=== PATIENT | male | born 2005 | race Hispanic/Latino ===

== ENCOUNTER 2024-12-22 11:06 | Emergency (ER) | payer SELFPAY ==
[~2024-12-22] VITALS: Ht 162.6 cm; Wt 75.3 kg
[2024-12-22 11:16] VITALS: BP 144/76; PULSE 97; RESP 16; TEMP 98.3
--- NOTE | 2024-12-22 11:19 | ERN ---
ED Note History of Present Illness Stated Complaint: RECTAL PAIN Chief Complaint: Other Problems Time Seen by MD: 11:11 Dictation: PATIENT IS A 19-YEAR-OLD MALE HERE WITH HIS MOTHER WITH COMPLAINTS OF RECTAL PAIN HE HAS HAD FOR ONE WEEK. STATES SHE HAS A HISTORY OF HEMORRHOIDS, WENT TO HIS PRIMARY CARE DOCTOR LAST [place] WAS NOT EXAMINED HOWEVER HAD A ANUCORT SUPPOSITORIES PRESCRIBED THAT HE STATES HE HAS BEEN USING. HE STATES HE STILL HAVING BOWEL MOVEMENTS, DENIES ANY HISTORY OF ANAL SEX OR FOREIGN OBJECTS. WAS NOT REFERRED TO [facility]. Allergies: Coded Allergies: No Known Drug Allergies (Unverified Allergy, Unknown, 12/22/24) Past Medical History RN Note Reviewed/Agreed w/PFSH: Yes Review of System Dictation CONSTITUTIONAL: NEGATIVE EXCEPT FOR HPI HEAD/FACE: NEGATIVE EXCEPT FOR HPI EENT: NEGATIVE EXCEPT FOR HPI RESPIRATORY: NEGATIVE EXCEPT FOR HPI GASTROINTESTINAL/ABDOMINAL: NEGATIVE EXCEPT FOR HPI RECTAL PAIN/HEMORRHOIDS GENITOURINARY: NEGATIVE EXCEPT FOR HPI MUSCULOSKELETAL: NEGATIVE EXCEPT FOR HPI INTEGUMENTARY: NEGATIVE EXCEPT FOR HPI NEUROLOGICAL/PSYCH: NEGATIVE EXCEPT FOR HPI HEMATOLOGIC/LYMPHATIC: NEGATIVE EXCEPT FOR HPI ALL SYSTEMS NEGATIVE, EXCEPT NOTED ABOVE. 13 POINT REVIEW OF SYSTEMS ASSESSED AND ALL NEGATIVE EXCEPT FOR ABOVE. Initial Vital Sign VS Vital Signs Date Time Temp Pulse Resp B/P (MAP) Pulse Ox O2 Delivery O2 Flow Rate FiO2 12/22/24 11:10 98 Room Air 0 12/22/24 11:16 98.2 97 16 144/76 Physical Exam Dictation VITAL SIGNS REVIEWED MI RN IN ROOM GENERAL APPEARANCE: ALERT, ORIENTED X 3, MODERATE ACUTE DISTRESS, WELL DEVELOPED, NOURISHED. HEAD AND FACE: NON-TRAUMATIC. EYES: PERRL, PINK CONJUNCTIVAS, EYELID NO TRAUMA, ANTERIOR CHAMBER WITH ARCUS SENILIS. EARS: PINNAS INTACT AND NO SIGNS OF TRAUMA OR ERYTHEMA EAR CANALS CLEAR AND NO DISCHARGE TM NO ERYTHEMA NOSE: NO DISCHARGE, NO BLEEDING. OROPHARYNX: MOUTH NORMAL, TONGUE PINK, PHARYNX CLEAR,NO ERYTHEMA, TONSILS NO EXUDATES, NO ABSCESSES NOTED, MUCOUS MEMBRANE MOIST NECK: SUPPLE, NON-TENDER, NO THYROMEGALY, NO MASSES, NO JVD, NO BRUITS BREAST:DEFERRED CHEST:NO TENDERNESS, NO CREPITUS, NO PARADOXICAL MOVEMENT, NO RETRACTIONS LUNGS:CLEAR, WELL-VENTILATED, SYMMETRIC, NO RALES, NO WHEEZING, NO RHONCHI, NO STRIDOR, GOOD BREATH SOUNDS BILATERALLY HEART: REGULAR RATE, REGULAR RHYTHM, NO MURMUR, NO GALLOPS VASCULAR: NO PERIPHERAL EDEMA, ABDOMEN: SOFT, POSITIVE BOWEL SOUNDS, NONDISTENDED, NO GUARDING, NONTENDER, NO REBOUND, NO MASSES NO HEPATOMEGALY, NO SPLENOMEGALY, NO REEDER'S SIGN, NO HERNIAS. RECTAL: NO EXTERNAL HEMORRHOIDS. NO FISSURES NORMAL TONE SMALL INTERNAL HEMORRHOID NOTED GENITAL: DEFERRED NEUROLOGICAL: NORMAL SPEECH, MOTOR FUNCTION INTACT, SENSORY FUNCTION INTACT MUSCULOSKELETAL: NECK NONTENDER, FULL RANGE OF MOTION, BACK NONTENDER, FULL RANGE OF MOTION, EXTREMITIES: NONTENDER, FULL RANGE OF MOTION SKIN: COLOR PINK, DRY, NO TURGOR, NO RASH, NO LACERATIONS, NO ABRASIONS, NO CONTUSIONS. LYMPHATIC: DEFERRED Results (Laboratory/Radiology) Labs Reviewed?: Yes ED Course ED Course Orders Procedure Category Date Status Time Hydrocodone/Apap PHA 12/22/24 Complete 5/325 ([place] 5/325mg) 11:30 Ketorolac 60mg/2ml PHA 12/22/24 Complete (Toradol 60mg/2ml) 13:00 Current Medications Medications (Trade) Dose Ordered Sig/Manny Route PRN Reason Start Time Stop Time Status Last Admin Dose Admin Acetaminophen/ Hydrocodone Bitart (NORco 5/325MG) 1 tab ONCE ONCE PO 12/22/24 11:30 12/22/24 11:31 DC 12/22/24 12:21 Ketorolac Tromethamine (toRADol 60MG/ 2ML) 60 mg ONCE ONCE IM 12/22/24 13:00 12/22/24 13:01 DC 12/22/24 13:05 Vital Signs Date Time Temp Pulse Resp B/P (MAP) Pulse Ox O2 Delivery O2 Flow Rate FiO2 12/22/24 11:16 98.2 97 16 144/76 97 0 12/22/24 11:10 98 Room Air 0 1312/PATIENT HAS A INTERNAL HEMORRHOIDS. DISCHARGED HOME TO CONTINUE ANUCORT SUPPOSITORIES, TOLD METAMUCIL TWICE A DAY AND WE WILL BE REFERRED TO DR. VEANNCIO CHAMBERS PATIENT STATES HE IS HAVING NORMAL BOWEL MOVEMENTS FOR THE LAST 3-4 DAYS. Medical Decision Making MDM MEDICAL DISCHARGE MAKING BASED ON PHYSICAL EXAM AND MANAGEMENT OF PAIN PATIENT GIVEN HEMORRHOID GUIDELINES TO INCLUDE METAMUCIL TWICE A DAY, CONTINUE ANUCORT SUPPOSITORIES REFERRED TO [facility] SURGEON DX & DISP Disposition: Discharge Departure Impression: Primary Impression: Internal hemorrhoid Condition: Stable Scripts Ibuprofen (Ibuprofen 800 mg Tab) 800 Mg Tab 800 MG PO Q8H PRN for fever or pain, #30 TAB 0 Refills Prov: ALHAJI TAMEZ UNDERGROUND SUPERVISOR 12/22/24 Psyllium Husk (with Sugar) (Metamucil Powder) 3.4 Gram/12 Gram Powder 575 GM PO BID for 7 Days, #300 GM 1 TSP IN 8 OZ OF WATER TWICE A DAY FOR THE NEXT SEVEN DAYS. Prov: ALHAJI TAMEZ NP 12/22/24 Additional Instructions: FOLLOW-UP WITH PRIMARY CARE PROVIDER IN 1 TO 2 DAYS. TAKE MEDICATIONS DIRECTED HERE IN THE EMERGENCY ROOM. OKAY TO CONTINUE HOME MEDICATIONS UNLESS OTHERWISE DISCUSSED DURING YOUR VISIT IN THE EMERGENCY ROOM TODAY. RETURN TO YOUR NEAREST EMERGENCY ROOM IF SYMPTOMS WORSEN OR IF THERE IS NO IMPROVEMENT. CALL 911 IF YOU NEED IMMEDIATE ASSISTANCE. TAKE TYLENOL OR MOTRIN [id number] NEEDED AND IF NO CONTRAINDICATIONS ARE PRESENT. INCREASE ORAL HYDRATION. A WOUND CULTURE OR URINE CULTURE WAS ORDERED HERE IN THE EMERGENCY ROOM DEPARTMENT PLEASE FOLLOW-UP WITH PRIMARY CARE PROVIDER AND ADVISE THEM TO GET REPEAT PORTS FROM OUR FACILITY. IF YOU HAD ANY SIA WRAP/SPLINTS THAT WERE APPLIED HERE, PLEASE DO NOT REMOVE THEM UNTIL YOU SEE YOUR PRIMARY CARE OR SPECIALTY. CONTINUE ANUCORT SUPPOSITORIES FROM YOUR DOCTOR TWICE A DAY DIRECTED. ALSO IN TAKE METAMUCIL 1 TSP IN 8 OZ OF WATER TWICE A DAY. CALL COLORECTAL SURGEON FOR APPOINTMENT IN THE NEXT 2-3 DAYS. Referrals: VENANCIO CHAPMAN MD Time of Disposition: 13:11 I have reviewed the case, and I agree with, Diagnosis and Plan ALHAJI TAMEZ NP Dec 22, 2024 11:19
[2024-12-22] MEDS: HYDROcodone/APAP 5/325 1 TAB TABLET PO ONE (12:21)
[2024-12-22] MEDS: ketOROlac 60 MG VIAL (30MG/ML) IM ONE (13:05)
[2024-12-22] MEDS ORDERED: PSYL575P22 PO (13:14)
[2024-12-22] MEDS ORDERED: IBUP-2077 PO (13:14)
== END 2024-12-22 14:17 | disposition home or self-care (01) ==
LOC: EDH 11:06
DX: K64.8 Other hemorrhoids (principal)
CPT/HCPCS: 99283; 96372; J1885